=== PATIENT | female | born 1980 | race Caucasian/White ===

== ENCOUNTER 2020-02-07 16:32 | Emergency (ER) | payer MEDICAID ==
[~2020-02-07] VITALS: Ht 180.3 cm; Wt 52.6 kg
[2020-02-07 16:36] VITALS: BP 141/75
--- NOTE | 2020-02-07 16:40 | NUR ---
C/O VAGINAL BLEEDING X YESTERDAY. DENIES VAGINAL BLEEDING TODAY. LMP 2 MONTHS AGO. PREGNACY TESTED 2 DAYS AGO : POSTIVE BUT CHECKED AGAIN YESTERDAY PREGNACY TEST NEGATIVE. HER PCP TOLD PT TO COME HERE FOR US. MED HX: DENIES
[2020-02-07 17:12] VITALS: BP 109/68
== END 2020-02-07 17:13 | disposition home or self-care (01) ==
LOC: MED 16:32
DX: O23.41 Unspecified infection of urinary tract in pregnancy, first trimester (principal); O20.0 Threatened abortion; Z3A.01 Less than 8 weeks gestation of pregnancy; Z85.828 Personal history of other malignant neoplasm of skin
CPT/HCPCS: 81002; 81025; 99283